=== PATIENT | male | born 1990 | race Caucasian/White ===

== ENCOUNTER 2023-11-12 17:53 | Emergency (ER) | payer SELFPAY ==
[~2023-11-12] VITALS: Ht 180.3 cm; Wt 85.7 kg
[2023-11-12 18:17] VITALS: BP 162/110; PULSE 89; RESP 18; TEMP 98.6; O2SAT 90
[2023-11-12] MEDS ORDERED: ACET-10509 PO (18:43)
[2023-11-12] MEDS ORDERED: IBUP-2213 PO (18:43)
[2023-11-12] MEDS ORDERED: AZIT250T4 PO (18:43)
[2023-11-12] MEDS: ACETAMINOPHEN EXTRA STRENGTH 500 MG TAB PO ONE (18:59)
[2023-11-12 19:27] VITALS: BP 150/80; PULSE 80; RESP 18; TEMP 98.6; O2SAT 90
== END 2023-11-12 19:27 | disposition home or self-care (01) ==
LOC: MED 17:53
DX: H72.91 Unspecified perforation of tympanic membrane, right ear (principal); Z79.899 Other long term (current) drug therapy; Z88.0 Allergy status to penicillin
CPT/HCPCS: 99283